=== PATIENT | male | born 1970 | race Two or more races ===

== ENCOUNTER 2016-08-17 14:21 | Emergency (ER) | payer BC ==
[~2016-08-17] VITALS: Wt 97.0 kg
[2016-08-17] MEDS ORDERED: ONDANSETRON (ODT) 4 MG TAB ODT STA (16:02)
[2016-08-17] MEDS ORDERED: HYDROmorphONE 1 MG/ML SYG IM STA (16:02)
[2016-08-17] MEDS ORDERED: METH-70 PO (16:03)
[2016-08-17] MEDS ORDERED: HYDR-902 PO (16:03)
[2016-08-17] MEDS ORDERED: IBUP800T25 PO (16:03)
--- NOTE | 2016-08-17 16:05 | ERD ---
ER Documentation Chief Complaint Date/Time DATE: 08/17/16 TIME: 16:04 Chief Complaint CHRONIC BACK PAIN HPI This a 41-year-old male with a history of 4 year history of tonic low back pain with radiculopathy down both sides of the posterior legs to the back of the thighs. No loss of bowel or bladder. The patient states that he has an MRI 3 years ago that shows some degenerative disc disease and a slight herniation. Patient says of the past 6-7 months has been getting gradually worse. Pain is described as dull sometimes sharp and worse with movement and better with rest. ROS All systems reviewed and are negative except as per history of present illness. Medications Home Meds Active Scripts Ibuprofen* (Motrin*) 800 Mg Tab, 800 MG PO Q6H Y for PAIN AND OR ELEVATED TEMP, #30 TAB Prov:DARIEN PANG DO 08/17/16 Methocarbamol* (Robaxin*) 750 Mg Tablet, 750 MG PO TID, #30 TAB Prov:DARIEN PANG DO 08/17/16 Hydrocodone/Acetaminophen ([place] 10-325 Tablet) 1 Each Tablet, 1 TAB PO Q6H Y for PAIN, #20 TAB Prov:DARIEN PANG DO 08/17/16 PMhx/Soc History of Surgery: No Hx Miscellaneous Medical Probl: Yes (degenerative disk disease; thyroid problems) Hx Alcohol Use: No Hx Substance Use: No Hx Tobacco Use: No Smoking Status: Never smoker FmHx Family History: No coronary disease Physical Exam Vitals Vital Signs Date Time Temp Pulse Resp B/P Pulse Ox O2 Delivery O2 Flow Rate FiO2 08/17/16 14:47 97.4 76 18 150/99 99 Physical Exam Const: Well-developed, well-nourished Head: Atraumatic, normocephalic Eyes: Normal Conjunctiva, PERRLA, EOMI, normal sclera, no nystagmus ENT: Normal External Ears, Nose and Mouth, moist mucus membranes. Neck: Full range of motion. No meningismus, no lymphadenopathy. Resp: Clear to auscultation bilaterally, no wheezing, rhonchi, rales Cardio: Regular rate and rhythm, no murmurs, S1 S2 present Abd: Soft, non tender x 4, non distended. Normal bowel sounds, no guarding or rebound, no pulsitile abdominal masses or bruits Skin: No petechiae or rashes, no ecchymosis , no maculopapular rash Back: Mild tender midline pain at L5. Negative straight leg test bilaterally] Ext: No cyanosis, or edema, FROM x 4, normal inspection, neurovascularly intact x 4 Neur: Awake and alert, STR 5/5 x 4, sensation intact x 4, no focal findings, cerebellum intact Psych: Normal Mood and Affect Procedures/MDM Patient has an appointment on August 25 with orthopedics for repeat eval of his back Departure Diagnosis: Primary Impression: Back pain Back pain location: low back pain Chronicity: chronic Back pain laterality : midline Sciatica presence: with sciatica Sciatica laterality: bilateral sciatica Qualified Code: M54.41 - Chronic midline low back pain with bilateral sciatica Condition: Stable Patient Instructions: Back Pain (Acute Or Chronic) DARIEN PANG DO Aug 17, 2016 16:05
[2016-08-17] MEDS ORDERED: LEVO150T67 PO (16:08)
[2016-08-17] MEDS ORDERED: LOSA50TA6 PO (16:08)
[2016-08-17] MEDS ORDERED: IBUPROFEN 800 MG TAB PO ONE (16:30)
[2016-08-17 16:47] VITALS: BP 132/77; PULSE 82; RESP 19; TEMP 98.5
== END 2016-08-17 16:47 | disposition home or self-care (01) ==
LOC: E/R 14:21
DX: M54.41 Lumbago with sciatica, right side (principal); R40.2142 Coma scale, eyes open, spontaneous, at arrival to emergency department; R40.2252 Coma scale, best verbal response, oriented, at arrival to emergency department; R40.2342 Coma scale, best motor response, flexion withdrawal, at arrival to emergency department
CPT/HCPCS: 96372; 99284; J1170